=== PATIENT | female | born 1990 | race African-American/Black ===

== ENCOUNTER 2020-08-12 18:01 | Emergency (ER) | payer BC, MEDICAID ==
[~2020-08-12] VITALS: Ht 177.8 cm; Wt 73.0 kg
[2020-08-12] MEDS ORDERED: TRAMADOL 50MG TABLET PO SCH (18:45)
[2020-08-12] MEDS ORDERED: LORAZEPAM 0.5MG TABLET PO SCH (18:45)
[2020-08-12] MEDS ORDERED: ACETAMINOPHEN 325MG TABLET PO ONE (19:00)
[2020-08-12] MEDS ORDERED: SODIUM CHLORIDE 0.9% 1,000 ML IV ONE (19:00)
[2020-08-12 21:40] LABS: BASOPHILS % 0.2 % (0.0-2.0); EOSINOPHILS % 0.8 % (0.0-5.0); HEMOGLOBIN. 11.8 g/dL (12.0-16.0); LYMPHOCYTES % 14.9 % (20.0-50.0); MEAN CORPUSCULAR HEMOGLOBIN 29.6 pg (28.0-32.0); MEAN CORPUSCULAR VOLUME 87.7 fL (81.0-99.0); MEAN PLATELET VOLUME 9.3 fl (7.4-10.4); MONOCYTES % 7.4 % (2.0-8.0); NEUTROPHILS % 76.7 % (40.0-76.0); PLATELET 178 x1000/uL (130-400); RED BLOOD CELL COUNT 3.99 mill/uL (4.2-5.4); RED CELL DISTRIBUTION WIDTH 13.9 % (11.6-14.6)
[2020-08-12 21:42] LABS: CHLORIDE 108 mEq/L (98-107)
[2020-08-12] MEDS ORDERED: POTASSIUM CHLORIDE 20MEQ TABLET SR PO NR (21:54)
[2020-08-12 22:15] LABS: CLARITY URINE CLOUDY (CLEAR); COLOR URINE DARK YELLOW (YELLOW); KETONES URINE NEGATIVE (NEGATIVE); LEUKOCYTE ESTERASE URINE 1+ (NEGATIVE); NITRITE URINE NEGATIVE (NEGATIVE); OCCULT BLOOD URINE 1+ (NEGATIVE); PH URINE >=9.0 (4.5-8.0); PROTEIN URINE 1+ (NEGATIVE); SPECIFIC GRAVITY URINE 1.029 (1.005-1.030)
[2020-08-12 23:15] VITALS: BP 121/77
[2020-08-13] MEDS ORDERED: CEPH-569 MT (22:36)
== END 2020-08-12 23:15 | disposition home or self-care (01) ==
LOC: ER 18:01
DX: J11.1 Influenza due to unidentified influenza virus with other respiratory manifestations (principal); Z03.818 Encounter for observation for suspected exposure to other biological agents ruled out; G43.909 Migraine, unspecified, not intractable, without status migrainosus; F41.9 Anxiety disorder, unspecified; Z98.890 Other specified postprocedural states
CPT/HCPCS: 36415; 71045; 80053; 81003; 85025; 87635; 93005; 96360; 96361; 99285; C9803; J7030

== ENCOUNTER 2020-10-18 09:38 | Emergency (ER) | payer MEDICAID ==
[~2020-10-18] VITALS: Ht 157.5 cm; Wt 160.0 kg
[~2020-10-18 09:38] MED LIST: CEPH-569 MT
[2020-10-18] MEDS ORDERED: IBUPROFEN 600MG TABLET PO ONE (10:30)
[2020-10-18 10:49] LABS: CLARITY URINE CLEAR (CLEAR); COLOR URINE ORANGE (YELLOW); KETONES URINE NEGATIVE (NEGATIVE); LEUKOCYTE ESTERASE URINE NEGATIVE (NEGATIVE); NITRITE URINE NEGATIVE (NEGATIVE); OCCULT BLOOD URINE 2+ (NEGATIVE); PH URINE 7.5 (4.5-8.0); PROTEIN URINE NEGATIVE (NEGATIVE); SPECIFIC GRAVITY URINE 1.017 (1.005-1.030)
[2020-10-18 12:15] VITALS: BP 118/70
== END 2020-10-18 12:16 | disposition home or self-care (01) ==
LOC: ER 09:38
DX: M54.5 Low back pain (principal); Z98.890 Other specified postprocedural states; Z79.899 Other long term (current) drug therapy
CPT/HCPCS: 81003; 81025; 99283; Z7610